=== PATIENT | female | born 1980 | race African-American/Black ===

== ENCOUNTER 2020-11-10 11:29 | Emergency (ER) | payer MEDICAID ==
[~2020-11-10] VITALS: Ht 170.2 cm; Wt 111.0 kg
[~2020-11-10 11:29] MED LIST: ALBUTEROL; LISINOPRIL; METFORMIN
[2020-11-10] MEDS ORDERED: TRAMADOL 50MG TABLET PO ONE (12:30)
[2020-11-10] MEDS ORDERED: TETRACAINE 0.5% OPHTH DROPS 4ML LEFTEYE ONE (12:30)
[2020-11-10] MEDS ORDERED: FLUORESCEIN SODIUM 1MG/STRIP LEFTEYE ONE (12:30)
[2020-11-10] MEDS ORDERED: LIDOCAINE HCL 1% 20ML VIAL (Pyxis) INJ INFIL ONE (12:45)
[2020-11-10] MEDS ORDERED: ACETAMINOPHEN 325MG TABLET PO ONE (13:00)
[2020-11-10 15:05] VITALS: BP 146/88
== END 2020-11-10 15:05 | disposition home or self-care (01) ==
LOC: ER 11:29
DX: S09.8XXA Other specified injuries of head, initial encounter (principal); I10 Essential (primary) hypertension; E11.9 Type 2 diabetes mellitus without complications; Y07.01 Husband, perpetrator of maltreatment and neglect; Y00.XXXA Assault by blunt object, initial encounter; Y93.89 Activity, other specified; Y92.018 Other place in single-family (private) house as the place of occurrence of the external cause; Z79.899 Other long term (current) drug therapy; J45.909 Unspecified asthma, uncomplicated
CPT/HCPCS: 99284

== ENCOUNTER 2021-02-25 00:59 | Emergency (ER) | payer MEDICAID ==
[~2021-02-25] VITALS: Ht 170.2 cm; Wt 104.0 kg
[2021-02-25 01:05] VITALS: BP 148/95
[2021-02-25] MEDS ORDERED: ACETAMINOPHEN 325MG TABLET PO ONE (01:30)
[2021-02-25] MEDS ORDERED: LIDOCAINE 5% PATCH TOP SCH (01:30)
[2021-02-25 02:07] LABS: CLARITY URINE CLEAR (CLEAR); COLOR URINE YELLOW (YELLOW); KETONES URINE NEGATIVE (NEGATIVE); LEUKOCYTE ESTERASE URINE NEGATIVE (NEGATIVE); NITRITE URINE NEGATIVE (NEGATIVE); OCCULT BLOOD URINE NEGATIVE (NEGATIVE); PH URINE 5.5 (4.5-8.0); PROTEIN URINE NEGATIVE (NEGATIVE); SPECIFIC GRAVITY URINE 1.018 (1.005-1.030); UROBILINOGEN URINE 0.2 E.U./dL (0.2-1.0)
[2021-02-25] MEDS ORDERED: LIDO1ADH5 TP (02:32)
== END 2021-02-25 03:00 | disposition home or self-care (01) ==
LOC: ER 00:59
DX: M54.59 Other low back pain (principal); R10.30 Lower abdominal pain, unspecified; R35.0 Frequency of micturition; I10 Essential (primary) hypertension; E11.9 Type 2 diabetes mellitus without complications; Z79.84 Long term (current) use of oral hypoglycemic drugs; Z79.899 Other long term (current) drug therapy
CPT/HCPCS: 81003; 99283

== ENCOUNTER 2021-04-16 14:12 | Emergency (ER) | payer MEDICAID, OTHER ==
[~2021-04-16 14:12] MED LIST changes: +LIDO1ADH5 TP
== END 2021-04-16 16:02 | disposition left against medical advice (07) ==
LOC: ER 14:12
DX: Z53.21 Procedure and treatment not carried out due to patient leaving prior to being seen by health care provider (principal)

== ENCOUNTER 2021-07-16 07:08 | Emergency (ER) | payer MEDICAID ==
[~2021-07-16] VITALS: Ht 170.2 cm; Wt 103.0 kg
[2021-07-16 07:30] VITALS: BP 136/88
[2021-07-16 08:19] LABS: BASOPHILS % 0.5 % (0.0-2.0); EOSINOPHILS % 1.6 % (0.0-5.0); HEMATOCRIT. 35.8 % (36.0-48.0); HEMOGLOBIN. 11.4 g/dL (12.0-16.0); LYMPHOCYTES % 42.2 % (20.0-50.0); MEAN CORPUSCULAR HEMOGLOBIN 25.2 pg (28.0-32.0); MEAN CORPUSCULAR VOLUME 79.1 fL (81.0-99.0); MEAN PLATELET VOLUME 8.8 fl (7.4-10.4); MONOCYTES % 6.6 % (2.0-8.0); NEUTROPHILS % 49.1 % (40.0-76.0); PLATELET 287 x1000/uL (130-400); RED BLOOD CELL COUNT 4.53 mill/uL (4.2-5.4); RED CELL DISTRIBUTION WIDTH 15.2 % (11.6-14.6)
[2021-07-16 08:25] LABS: CHLORIDE 105 mEq/L (98-107)
[2021-07-16 08:36] LABS: B-HCG QUANTITATIVE < 1 mIU/mL (<3)
[2021-07-16] MEDS ORDERED: OMEP40CA20 MT (09:00)
== END 2021-07-16 09:18 | disposition home or self-care (01) ==
LOC: ER 07:08
DX: R12 Heartburn (principal); E11.9 Type 2 diabetes mellitus without complications; J45.909 Unspecified asthma, uncomplicated; Z88.6 Allergy status to analgesic agent; Z88.2 Allergy status to sulfonamides; Z98.890 Other specified postprocedural states
CPT/HCPCS: 36415; 80053; 84702; 85025; 93005; 99284

== ENCOUNTER 2021-08-05 07:21 | Emergency (ER) | payer MEDICAID ==
[~2021-08-05] VITALS: Ht 170.2 cm; Wt 102.0 kg
[~2021-08-05 07:21] MED LIST changes: +OMEP40CA20 MT
[2021-08-05] MEDS ORDERED: DIPHENHYDRAMINE 25MG CAPSULE PO ONE (08:15)
[2021-08-05] MEDS ORDERED: METOCLOPRAMIDE HCL 10MG TABLET PO ONE (08:15)
[2021-08-05] MEDS ORDERED: METOCLOPRAMIDE HCL 10MG TABLET PO NR (08:45)
[2021-08-05] MEDS ORDERED: DIPHENHYDRAMINE 25MG CAPSULE PO NR (08:45)
[2021-08-05 09:28] VITALS: BP 123/81
== END 2021-08-05 09:28 | disposition home or self-care (01) ==
LOC: ER 07:30
DX: R51.9 Headache, unspecified (principal); G56.03 Carpal tunnel syndrome, bilateral upper limbs; I10 Essential (primary) hypertension; E11.9 Type 2 diabetes mellitus without complications
CPT/HCPCS: 99283; J8597; Q0163

== ENCOUNTER 2021-11-07 07:56 | Emergency (ER) | payer MEDICAID ==
[~2021-11-07] VITALS: Ht 167.6 cm; Wt 103.0 kg
[2021-11-07] MEDS ORDERED: MAGNESIUM/ALUMINUM HYDROXIDE/SIMETHICONE 30ML UDC PO ONE (09:30)
[2021-11-07] MEDS ORDERED: OMEP20TA15 MT (09:38)
[2021-11-07 10:01] VITALS: BP 126/84
[2021-11-07 10:35] LABS: BASOPHILS % 0.4 % (0.0-2.0); EOSINOPHILS % 2.3 % (0.0-5.0); HEMATOCRIT. 35.6 % (36.0-48.0); HEMOGLOBIN. 11.3 g/dL (12.0-16.0); LYMPHOCYTES % 38.4 % (20.0-50.0); MEAN CORPUSCULAR HEMOGLOBIN 24.9 pg (28.0-32.0); MEAN CORPUSCULAR VOLUME 78.3 fL (81.0-99.0); MEAN PLATELET VOLUME 9.4 fl (7.4-10.4); MONOCYTES % 7.1 % (2.0-8.0); NEUTROPHILS % 51.8 % (40.0-76.0); PLATELET 260 x1000/uL (130-400); RED BLOOD CELL COUNT 4.55 mill/uL (4.2-5.4); RED CELL DISTRIBUTION WIDTH 15.4 % (11.6-14.6)
[2021-11-07 10:43] LABS: CHLORIDE 108 mEq/L (98-107)
== END 2021-11-07 13:06 | disposition home or self-care (01) ==
LOC: ER 07:56
DX: K29.70 Gastritis, unspecified, without bleeding (principal); E11.9 Type 2 diabetes mellitus without complications; I10 Essential (primary) hypertension; J45.909 Unspecified asthma, uncomplicated; Z79.84 Long term (current) use of oral hypoglycemic drugs; Z79.899 Other long term (current) drug therapy; Z79.51 Long term (current) use of inhaled steroids
CPT/HCPCS: 36415; 71045; 80053; 84484; 85025; 93005; 99285

== ENCOUNTER 2022-03-21 21:38 | Emergency (ER) | payer MEDICAID ==
[~2022-03-21] VITALS: Ht 180.3 cm; Wt 111.1 kg
[~2022-03-21 21:38] MED LIST changes: +OMEP20TA15 MT
[2022-03-21 22:48] LABS: BASOPHILS % 0.4 % (0.0-2.0); EOSINOPHILS % 1.6 % (0.0-5.0); HEMATOCRIT. 37.1 % (36.0-48.0); HEMOGLOBIN. 11.9 g/dL (12.0-16.0); LYMPHOCYTES % 40.8 % (20.0-50.0); MEAN CORPUSCULAR HEMOGLOBIN 25.2 pg (28.0-32.0); MEAN CORPUSCULAR VOLUME 78.6 fL (81.0-99.0); MONOCYTES % 6.2 % (2.0-8.0); PLATELET 276 x1000/uL (130-400); RED BLOOD CELL COUNT 4.73 mill/uL (4.2-5.4)
[2022-03-21 22:56] LABS: CHLORIDE 104 mEq/L (98-107)
[2022-03-21 22:58] LABS: HCG SCREEN NEGATIVE
[2022-03-21 23:30] VITALS: BP 122/80
== END 2022-03-21 23:30 | disposition home or self-care (01) ==
LOC: ER 21:38 → CANBEDREQ 03-22 09:34
DX: R07.89 Other chest pain (principal); J45.909 Unspecified asthma, uncomplicated; E11.9 Type 2 diabetes mellitus without complications; Z98.890 Other specified postprocedural states; Z88.6 Allergy status to analgesic agent; Z88.8 Allergy status to other drugs, medicaments and biological substances
CPT/HCPCS: 36415; 71045; 80053; 83880; 84484; 84703; 85025; 85379; 93005; 99285

== ENCOUNTER 2022-04-06 14:03 | Emergency (ER) | payer MEDICAID ==
[~2022-04-06] VITALS: Ht 170.2 cm; Wt 100.0 kg
[2022-04-06 14:13] VITALS: BP 125/83
[2022-04-06] MEDS ORDERED: IBUP-2029 PO (15:06)
[2022-04-06] MEDS ORDERED: IBUPROFEN 600MG TABLET PO ONE (15:15)
== END 2022-04-06 16:27 | disposition home or self-care (01) ==
LOC: ER 14:06
DX: K08.89 Other specified disorders of teeth and supporting structures (principal); J45.909 Unspecified asthma, uncomplicated; E11.9 Type 2 diabetes mellitus without complications; K21.9 Gastro-esophageal reflux disease without esophagitis; I10 Essential (primary) hypertension; Z98.890 Other specified postprocedural states; Z79.899 Other long term (current) drug therapy
CPT/HCPCS: 99281

== ENCOUNTER 2022-09-24 07:24 | Emergency (ER) | payer MEDICAID, OTHER ==
[~2022-09-24] VITALS: Ht 170.2 cm; Wt 114.0 kg
[~2022-09-24 07:24] MED LIST changes: +IBUP-2029 PO
[2022-09-24 07:29] VITALS: O2SAT 100
[2022-09-24 08:44] LABS: CLARITY URINE CLEAR (CLEAR); COLOR URINE YELLOW (YELLOW); KETONES URINE NEGATIVE (NEGATIVE); LEUKOCYTE ESTERASE URINE NEGATIVE (NEGATIVE); NITRITE URINE NEGATIVE (NEGATIVE); OCCULT BLOOD URINE NEGATIVE (NEGATIVE); PH URINE 5.5 (4.5-8.0); PROTEIN URINE NEGATIVE (NEGATIVE); SPECIFIC GRAVITY URINE 1.006 (1.005-1.030); UROBILINOGEN URINE 0.2 E.U./dL (0.2-1.0)
[2022-09-24 08:49] LABS: BASOPHILS % 0.3 % (0.0-2.0); EOSINOPHILS % 1.3 % (0.0-5.0); HEMATOCRIT. 38.6 % (36.0-48.0); HEMOGLOBIN. 12.3 g/dL (12.0-16.0); LYMPHOCYTES % 36.8 % (20.0-50.0); MEAN CORPUSCULAR HEMOGLOBIN 25.2 pg (28.0-32.0); MEAN CORPUSCULAR VOLUME 79.3 fL (81.0-99.0); MEAN PLATELET VOLUME 8.6 fl (7.4-10.4); MONOCYTES % 6.2 % (2.0-8.0); NEUTROPHILS % 55.4 % (40.0-76.0); PLATELET 286 x1000/uL (130-400); RED BLOOD CELL COUNT 4.86 mill/uL (4.2-5.4)
[2022-09-24 08:52] LABS: CHLORIDE 105 mEq/L (98-107)
[2022-09-24 08:54] LABS: PROTHROMBIN TIME 10.4 sec (9.6-11.0)
[2022-09-24 08:59] LABS: ETHANOL BLOOD < 10 mg/dL (-10)
[2022-09-24 09:09] LABS: HCG SCREEN NEGATIVE
[2022-09-24] MEDS ORDERED: ASPIRIN 325MG EC TABLET PO ONE (09:15)
[2022-09-24 09:19] LABS: *AMPHETAMINES SCREEN URINE NEGATIVE (NEGATIVE); *BARBITURATES SCREEN URINE NEGATIVE (NEGATIVE); *BENZODIAZEPINES SCREEN URINE NEGATIVE (NEGATIVE); *COCAINE SCREEN URINE NEGATIVE (NEGATIVE); CANNABINOID URINE SCREEN NEGATIVE (NEGATIVE); METHADONE URINE SCREEN NEGATIVE (NEGATIVE); OPIATES URINE SCREEN NEGATIVE (NEGATIVE); PHENCYCLIDINE URINE SCREEN NEGATIVE (NEGATIVE)
[2022-09-24 13:51] VITALS: BP 138/91; PULSE 89; RESP 18; TEMP 98.4
== END 2022-09-24 13:51 | disposition short-term general hospital (02) ==
LOC: ER 07:24 → CANBEDREQ 20:34
DX: I63.9 Cerebral infarction, unspecified (principal); I10 Essential (primary) hypertension; E11.9 Type 2 diabetes mellitus without complications; J45.909 Unspecified asthma, uncomplicated; Z88.6 Allergy status to analgesic agent; Z91.041 Radiographic dye allergy status; Z88.8 Allergy status to other drugs, medicaments and biological substances; Z98.890 Other specified postprocedural states
CPT/HCPCS: 36415; 70450; 71045; 80053; 80305; 80320; 81003; 84484; 84703; 85025; 85610; 93005; 99291; Z7610; G0480